=== PATIENT | female | born 1970 | race Caucasian/White ===

== ENCOUNTER → 2024-09-14 | Outpatient (CLI) | payer OTHER ==
[~2024-09-14] MED LIST: AMOXICILLIN/CLA1 TA1 PO; LOTREL 10 MG-201 CAP; MOTRIN 800800 MG/TAB PO; MUCINEX DM 30 M1 TE1; NORCO 325 MG-51 TAB PO; PRAVACHOL 40MG40 MG PO; PRILOSEC 20MG20 MG PO; TRICOR145 MG; VITAMIND3 5000; WELLBUTRIN XL150 MG PO; WELLBUTRIN XL300 M1 PO; ZYRTEC-D 5 MG-11 TER PO
== END ==
LOC: COL.VAS 08:33
DX: Z51.11 Encounter for antineoplastic chemotherapy (principal); I34.0 Nonrheumatic mitral (valve) insufficiency; I51.7 Cardiomegaly; J90 Pleural effusion, not elsewhere classified; C50.212 Malignant neoplasm of upper-inner quadrant of left female breast